=== PATIENT | female | born 1995 | race Caucasian/White ===

== ENCOUNTER 2016-10-23 20:26 | Emergency (ER) | payer SELFPAY ==
[2016-10-23 20:39] VITALS: BP 144/93
--- NOTE | 2016-10-23 21:08 | Emergency Department Report ---
Entered by QUENTIN JIMENEZ, acting as scribe for LEIGHA HERNANDEZ PA. ED General Adult HPI - General Chief complaint: Eye Problems Stated complaint: LT EYE RED W/SWELLING Time Seen by Provider: 10/23/16 20:47 Source: patient Mode of arrival: Ambulatory Limitations: No Limitations - History of Present Illness Initial comments: Patient is a 21 y.o. female with a PMHx including chicken pox and recently giving who presents to ED for evaluation of a three day history of constant, progressively worsening, patchy, vesicular rash localized in a small area underneath her left eye with associated constant pain, watery discharge from her left eye, and intermittent left eye pain that is precipitated with certain eye movements. She rates her pain as moderate to severe and notes that it is alleviated with home narcotic medications that she is currently taking after recently giving . Patient denies rash at other areas of her body. She does not report fever or chills. Patient denies known allergies. Onset/Timin -: days(s) Location: face (rash localized under left eye) Radiation: non-radiation Consistency: constant Improves with: other (narcotic pain medications) Associated Symptoms: other (rash with associated pain and left eye drainage) - Related Data Previous Rx's Medication Instructions Recorded Last Taken Type Valacyclovir HCl [Valtrex] 1,000 mg PO TID #30 tablet 10/23/16 Unknown Rx Allergies Allergy/AdvReac Type Severity Reaction Status Date / Time No Known Allergies Allergy Unverified 10/23/16 20:31 ED Review of Systems Comment: All other systems reviewed and negative Constitutional: denies: chills, fever Eyes: eye pain (intermittent), eye discharge (watery), other (Negative for rash to eye). denies: vision change ENT: denies: ear pain, throat pain, dental pain Respiratory: denies: cough, shortness of breath, wheezing Cardiovascular: denies: chest pain, palpitations Gastrointestinal: diarrhea. denies: abdominal pain, nausea, vomiting Musculoskeletal: other (Positive for pain localized to rash underneath left eye) . denies: back pain, joint swelling, arthralgia Skin: rash (underneath left eye. Negative for rash elsewhere on body. ). denies : pruritus Neurological: denies: headache, weakness, paresthesias Psychiatric: denies: anxiety, depression ED Past Medical Hx - Past Medical History Previous Medical History?: Yes Additional medical history: post c section x 1 week full term no complications - Surgical History Past Surgical History?: Yes Additional Surgical History: c section x 1 week ago - Social History Smoking Status: Never Smoker - Medications Home Medications: Home Medications Medication Instructions Recorded Confirmed Last Taken Type Valacyclovir HCl [Valtrex] 1,000 mg PO TID #30 tablet 10/23/16 Unknown Rx ED Physical Exam - General Limitations: No Limitations General appearance: alert, in no apparent distress - Head Head exam: Present: atraumatic, normocephalic - Eye Eye exam: Present: normal appearance, PERRL, EOMI, other (No rash, ulcers, lesions to globe of eye. Clear watering Discharge from left eye. ). Absent: scleral icterus, conjunctival injection Pupils: Present: normal accommodation - ENT ENT exam: Present: normal orophraynx, mucous membranes moist, normal external ear exam - Neck Neck exam: Present: normal inspection, full ROM. Absent: tenderness, meningismus, lymphadenopathy, thyromegaly - Respiratory Respiratory exam: Present: normal lung sounds bilaterally, other (Normal work of breathing. ). Absent: respiratory distress, wheezes, rales, rhonchi, accessory muscle use - Cardiovascular Cardiovascular Exam: Present: regular rate, normal rhythm, normal heart sounds. Absent: systolic murmur, diastolic murmur, rubs, gallop - GI/Abdominal GI/Abdominal exam: Present: soft, normal bowel sounds. Absent: distended, tenderness - Rectal Rectal exam: Present: deferred - Extremities Exam Extremities exam: Present: normal inspection, full ROM - Back Exam Back exam: Present: normal inspection, full ROM - Neurological Exam Neurological exam: Present: alert, oriented X3 - Psychiatric Psychiatric exam: Present: normal affect, normal mood - Skin Skin exam: Present: warm, dry, rash (patchy, vesicular rash localized in a small area underneath her left eye. ) ED Course Vital Signs 10/23/16 20:35 Temperature 99.0 F Pulse Rate 99 H Respiratory 20 Rate Blood Pressure 144/93 O2 Sat by Pulse 99 Oximetry ED Medical Decision Making - Medical Decision Making Patient is nontoxic and hemodynamically stable. Patient does have a history of chickenpox as a child and rash presentation is consistent with herpes zoster. Patient has a [id number] child and I haven't instructed and warned patient that this is contagious to her child or anybody that has not had chickenpox or the chickenpox vaccine in the past. I will start patient on medications appropriately and patient is to follow-up with her doctor to ensure resolution of condition. Patient is in agreement with treatment plan patient is stable for discharge. ED Disposition Clinical Impression: Shingles Disposition: DC-01 TO HOME OR SELFCARE Is pt being admited?: No Does the pt Need Aspirin: No Condition: Good Instructions: Herpes Zoster (ED) Prescriptions: Valacyclovir HCl [Valtrex] 1,000 mg PO TID #30 tablet Referrals: PRIMARY CARE, [Primary Care Provider] - 3-5 Days Time of Disposition: 21:04 This documentation as recorded by the florenceibTONY morales KELLY,accurately reflects the service I personally performed and the decisions made by me,LEIGHA HERNANDEZ PA.
== END 2016-10-23 21:24 | disposition home or self-care (01) ==
LOC: ED 20:26
DX: B02.9 Zoster without complications (principal); H57.12 Ocular pain, left eye
CPT/HCPCS: 99282

== ENCOUNTER 2019-11-23 07:01 | Emergency (ER) | payer OTHER ==
[2019-11-23 07:33] VITALS: BP 148/94
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
[2019-11-23 09:09] LABS: HCG Qualitative,Urine Negative (Negative)
[2019-11-23] MEDS ORDERED: DIPHtheria,PERTUSSIS(ACELL),TETANUS VACCINE/PF 0.5 ML VIAL IM ONE (09:20)
[2019-11-23] MEDS ORDERED: ACETAMINOPHEN 325 MG TAB PO ONE (09:20)
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
== END 2019-11-23 09:58 | disposition home or self-care (01) ==
LOC: ED 07:01
DX: S00.511A Abrasion of lip, initial encounter (principal); M54.2 Cervicalgia; R51 Headache; E04.1 Nontoxic single thyroid nodule; Z79.899 Other long term (current) drug therapy; Y04.2XXA Assault by strike against or bumped into by another person, initial encounter; Y93.89 Activity, other specified; Y92.89 Other specified places as the place of occurrence of the external cause; Y99.8 Other external cause status
CPT/HCPCS: 70450; 72125; 81025; 90471; 90715